=== PATIENT | male | born 1995 | race Caucasian/White ===

== ENCOUNTER → 2016-11-14 | Outpatient (CLI) | payer BC ==
[~2016-11-14] MED LIST: AGM500T PO; AMOX875T2 PO; PRED20TA PO
[2016-11-14 12:27] VITALS: BP 98/58
--- NOTE | 2016-11-14 12:27 | Urgent Care T Sheet Gen (E) ---
Intake General Temperature (Fahrenheit): 98.3 Pulse: 59 Blood Pressure Systolic: 98 Blood Pressure Diastolic: 58 Respirations: 18 SPO2: 98 Description of Symptoms Patient presents with sore throat x 2 days. States his mucus this morning was bloody. No cough, congestion, MOTTA or body aches. No fever. Been taking ibuprofen. History of Present Illness Allergies: Coded Allergies: No Known Drug Allergies (Unverified , 02/06/16) Home Meds Active Scripts Amoxicillin/Clavulanate Potassium (Augmentin 500mg/125mg)1 Each Tablet1 Each PO BID Infection #20 TAB Ref 0 Prov:MANUEL ROJAS 08/18/16 Amoxicillin 875 Mg [id number] Mg PO BID #20 TAB Ref 0 Prov:CHILO PAULINO APRN () 02/06/16 Respiratory Constitutional Symptoms: No syptoms reported EENTM: Throat pain Throat swelling Respiratory: No symptoms reported Cardiovascular: No symptoms reported Gastrointestinal/Abdominal: No symptoms reported All Other Systems Reviewed Remaining Systems: All other systems reviewed with negative findings Past Msbrpyc-Guabro-[id number] Hx Patient's Social History Alcohol Use: Denies Use Smoking Status: Never smoker Surgeries/Hospitalizations Hospitalization/Surgery Hx: healthy Physical Exam Physical Exam General Appearance: WD/WN No apparent distress Eyes, Ears, Nose, Throat Ex: TMs normal Pharyngeal erythema Other (nose is clear) Neck Exam: Supple Lymphadenopathy Respiratory Exam: Lungs clear Normal breath sounds Cardiovascular Exam: Regular rate, rhythm Departure Urgent Care Impression Impression: Primary Impression: Viral pharyngitis Departure Disposition: 01 HOME OR SELF-CARE Condition: Stable Referrals: ANTHONY HU MD (PCP) Additional Instructions: Rapid strep was negative. patient declined sending out for culture. I have prescribed Prednisone for inflammation and gland swelling. No ibuprofen while on Prednisone Rest. Fluids Chloraseptic spray or salt water gargles for pain Return as needed Patient understands DC instructions. All questions were answered. Scripts Prednisone 20 Mg [id number] Mg PO DAILY #6 TAB Prov:MANUEL ROJAS 11/14/16 End of report . MANUEL ROJAS Nov 14, 2016 12:27
== END ==
LOC: MHUC 11:50
PROVIDERS: ATTEND Physician Assistant
DX: J02.8 Acute pharyngitis due to other specified organisms (principal)
CPT/HCPCS: 87880; 99213